=== PATIENT | female | born 1975 | race Caucasian/White ===

== ENCOUNTER 2020-08-03 16:01 | Emergency (ER) | payer OTHER, BC ==
--- NOTE | 2020-08-03 19:10 | EDM.PDOC ---
ED HPI GENERAL MEDICAL PROBLEM - General Stated Complaint: LACERATION OF FINGER Time Seen by Provider: 08/03/20 16:01 Source of Information: Reports: Patient History Limitations: Reports: No Limitations - History of Present Illness INITIAL COMMENTS - FREE TEXT/NARRATIVE: Pt. sustained an approx. 1 cm laceration to volar distal L middle finger. 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 Denies any injury elsewhere. She denies any numbness/tingling in distal portion of the extremity. She states that her tetanus is up to date. Onset: Today Onset Date: 08/03/20 Location: Reports: Upper Extremity, Left - Related Data Allergies Allergy/AdvReac Type Severity Reaction Status Date / Time codeine Allergy Nausea and Verified 03/15/14 00:25 Vomiting Home Meds: Home Meds Naproxen Sodium [Aleve] 3 tab PO PRN 03/15/14 [History] ED ROS GENERAL - Review of Systems Review Of Systems: Comprehensive ROS is negative, except as noted in HPI. ED EXAM, GENERAL - Physical Exam Exam: See Below Exam Limited By: No Limitations General Appearance: Alert, WD/WN, No Apparent Distress Extremities: Other (1 cm laceration to volar distal portion of L middle finger. No obvious trauma to underlying structures. CMS intact.) ED GENERAL MEDICAL PROCEDURES - Laceration/Wound Repair Left Ventral Digit - 3rd (Middle) Lac/wound length in cm: 1 Appearance: Subcutaneous Distal NVT: Neuro & Vascular Intact, No Tendon Injury Anesthetic Type: Local Local Anesthesia - Lidocaine (Xylocaine): 1% Plain Local Anesthetic Volume: 2cc Skin Prep: Chlorhexidine (Hibiciens), Saline Suture Size: 5-0 # of Sutures: 2 Suture Type: Nylon Course - Orders/Labs/Meds Meds: Medications Discontinued Medications Generic Name Dose Route Start Last Admin Trade Name Freq PRN Reason Stop Dose Admin Lidocaine HCl 5 ml 08/03/20 16:28 08/03/20 16:35 Lidocaine 1% 5 Ml Sdv INJECT 08/03/20 16:29 5 ml ONETIME ONE Administration Departure - Departure Time of Disposition: 17:00 Disposition: Home, Self-Care 01 Clinical Impression: Laceration - Discharge Information Instructions: Laceration Care, Adult Referrals: Flora Mcdermott MD [Primary Care Provider] - Additional Instructions: Sutures out in 10 days. This can be done in the clinic. Return if there is any redness, swelling, or discharge from the area. Keep bandaid on and keep dry for 48 hours - Assessment/Plan Plan: Sutures out in 10 days. This can be done in the clinic. Return if there is any redness, swelling, or discharge from the area. Keep bandaid on and keep dry for 48 hours
== END 2020-08-03 17:05 | disposition home or self-care (01) ==
LOC: VM.ED 16:01
DX: S61.213A Laceration without foreign body of left middle finger without damage to nail, initial encounter (principal); Z88.5 Allergy status to narcotic agent; W26.8XXA Contact with other sharp object(s), not elsewhere classified, initial encounter; Y99.0 Civilian activity done for income or pay
CPT/HCPCS: 12001; 99282-25; 99283

== ENCOUNTER 2021-11-16 04:15 | Emergency (ER) | payer BC, OTHER ==
[2021-11-16] MEDS ORDERED: Lidocaine 4% 1 each Patch TOP ONE (05:45)
[2021-11-17] MEDS ORDERED: Lidocaine 4% 1 each Patch TOP SCH (09:00)
== END 2021-11-16 06:01 | disposition home or self-care (01) ==
LOC: VM.ED 04:15
DX: S33.130A Subluxation of L3/L4 lumbar vertebra, initial encounter (principal); Z88.5 Allergy status to narcotic agent; X50.0XXA Overexertion from strenuous movement or load, initial encounter
CPT/HCPCS: 96372; 99283; J3360

== ENCOUNTER 2022-08-19 14:32 | Emergency (ER) | payer OTHER ==
[2022-08-19 14:56] LABS: BASOPHILS PERCENT AUTO 0.2 % (0.2-1.2); EOSINOPHILS ABSOLUTE AUTO 0.1 x10^3/uL (0.0-0.5); EOSINOPHILS PERCENT AUTO 0.7 % (0.0-4.0); HEMATOCRIT 36.5 % (33.0-47.0); HEMOGLOBIN 12.4 g/dL (12.0-16.0); IMMATURE GRAN ABSOLUTE AUTO 0.01 x10^3/uL (0.00-0.07); LYMPHOCYTES ABSOLUTE AUTO 1.4 x10^3/uL (1.0-4.8); LYMPHOCYTES PERCENT AUTO 16.5 % (25.0-50.0); MEAN CORPUSCULAR VOLUME 82.4 fL (78.0-93.0); MONOCYTES ABSOLUTE AUTO 0.6 x10^3/uL (0.0-0.8); MONOCYTES PERCENT AUTO 7.3 % (2.0-11.0); NEUTROPHILS ABSOLUTE AUTO 6.4 x10^3/uL (1.8-7.7); NEUTROPHILS PERCENT AUTO 75.2 % (50.0-80.0); PLATELET COUNT,PLT 319 x10^3/uL (130-400); RED BLOOD CELL COUNT 4.43 x10^6/uL (4.00-5.50); WHITE BLOOD CELL COUNT,WBC 8.6 x10^3/uL (4.0-10.0)
[2022-08-19 15:22] LABS: A/G RATIO 0.9; ALBUMIN 3.5 g/dL (3.4-5.0); ANION GAP 13.3 mmol/L (5-15); BILIRUBIN TOTAL 0.5 mg/dL (0.2-1.0); C-REACTIVE PROTEIN 0.7 mg/dL (<=0.9); CALCIUM 9.1 mg/dL (8.5-10.1); EST CRCL DRUG DOSING (CG) 58.77 mL/min; POTASSIUM,K 4.3 mmol/L (3.5-5.1); PROTEIN TOTAL,TP 7.4 g/dL (6.4-8.2)
[2022-08-19 16:03] LABS: BILIRUBIN,URINE NEGATIVE (NEGATIVE); GLUCOSE,URINE NEGATIVE (NEGATIVE); KETONES,URINE NEGATIVE (NEGATIVE); LEUKOCYTE ESTERASE,URINE TRACE (NEGATIVE); NITRITE,URINE NEGATIVE (NEGATIVE); OCCULT BLOOD,URINE LARGE (NEGATIVE); PROTEIN,URINE NEGATIVE (NEGATIVE); UROBILINOGEN,URINE 0.2 EU/dL (0.2)
[2022-08-19 16:06] LABS: APPEARANCE,URINE CLOUDY (CLEAR); COLOR,URINE DARK YELLOW (YELLOW)
[2022-08-19 16:13] LABS: BACTERIA,URINE RARE /HPF (NOT SEEN); MUCUS,URINE OCCASIONAL /LPF (NOT SEEN); RBC,URINE >100 /HPF (NOT SEEN); SQUAMOUS EPITHELIAL CELLS,UR FEW /HPF (NOT SEEN)
== END 2022-08-19 16:25 | disposition home or self-care (01) ==
LOC: VM.ED 14:32
DX: T67.5XXA Heat exhaustion, unspecified, initial encounter (principal); Z88.5 Allergy status to narcotic agent
CPT/HCPCS: 36415; 80053; 81001; 82550; 85025; 86140; 87086; 87088; 99283; 99284

== ENCOUNTER 2022-12-19 12:09 | Day surgery (SDC) | payer OTHER ==
[2022-12-19] MEDS: Lactated Ringers 1,000 ML IV SCH (12:29)
[2022-12-19] MEDS ORDERED: fentaNYL 100 MCG/2 ML SDV ONE (12:56)
[2022-12-19] MEDS ORDERED: Propofol 200 MG/20 ML SDV ONE (12:56)
[2022-12-19] MEDS ORDERED: Ondansetron 4 MG/2 ML SDV IV PRN (14:39)
[2022-12-19] MEDS: Ondansetron 4 MG/2 ML SDV IV PRN (14:45)
== END 2022-12-19 15:30 | disposition home or self-care (01) ==
LOC: VM.SDS 12:09
PROVIDERS: ATTEND Family Medicine
DX: K29.50 Unspecified chronic gastritis without bleeding (principal); K31.7 Polyp of stomach and duodenum; K29.80 Duodenitis without bleeding; K31.89 Other diseases of stomach and duodenum; R13.10 Dysphagia, unspecified; G43.909 Migraine, unspecified, not intractable, without status migrainosus; J40 Bronchitis, not specified as acute or chronic; K64.4 Residual hemorrhoidal skin tags; F33.1 Major depressive disorder, recurrent, moderate; E66.9 Obesity, unspecified; Z88.5 Allergy status to narcotic agent; Z79.899 Other long term (current) drug therapy
CPT/HCPCS: 00731; J2405; J2704; J3010; J7120